=== PATIENT | male | born 1955 | race Caucasian/White ===

== ENCOUNTER 2018-09-22 08:12 | Day surgery (SDC) | payer OTHER ==
[2018-09-21 16:35] VITALS: Ht 165.1 cm; Wt 70.0 kg
[~2018-09-22] VITALS: Ht 165.1 cm; Wt 70.0 kg
[2018-09-22] VITALS (14 sets, daily range): BP systolic 116–151; BP diastolic 58–78; PULSE 44–62; RESP 10–21
[~2018-09-22 08:12] MED LIST: EPHEDrine SULFATE 50 MG/5 ML SYG ONE; PROPOFOL 200 MG INJ ONE
[2018-09-22] MEDS ORDERED: ATOR10TA65 PO (08:49)
[2018-09-22] MEDS ORDERED: POLYMYXIN/BACITRACIN 1L IRRIG ONE (09:22)
[2018-09-22] MEDS ORDERED: BUPIVACAINE 0.25% (MPF) 30 ML INJ ONE (09:22)
[2018-09-22] MEDS ORDERED: CEFAZOLIN 2 GM/50 ML (PMX) 50 ML IVPB ONE (10:00)
[2018-09-22] MEDS ORDERED: SOD CHLORIDE 0.9% 1,000 ML IV SCH (10:00)
--- NOTE | 2018-09-22 10:22 | PREAC ---
Date/Time of Note Date/Time of Note DATE: 09/22/18 TIME: 10:21 Anesthesia Eval and Record Evaluation Time Pre-Procedure Interview DATE: 09/22/18 TIME: 10:21 Age 63 Sex male NPO: 8 hrs Preoperative diagnosis Right Inguinal Hernia Planned procedure Right Inguinal Hernia Repair with Mesh Past Medical History Past Medical History: Includes Cardio: Dyslipidemia Surgery & Anesthesia Issues No known issue Meds Anticoagulation: No Beta Jojo within 24 hr: No Reason Beta Jojo not given: Pt. not on B-Jojo Reported Medications Atorvastatin Calcium (Atorvastatin Calcium) 10 Mg Tablet, 10 MG PO QHS, #30 TAB 09/22/18 Current Medications Cefazolin Sodium/ Dextrose 50 ml @ 100 mls/hr PRE-OP ONCE IVPB ; Start 09/22/18 at 10:00; Stop 09/22/18 at 10:29 Sodium Chloride 1,000 ml @ 75 mls/hr [id number] IV ; Start 09/22/18 at 10:00; Stop 09/22/18 at 23:19 Meds reviewed: Yes Allergies Coded Allergies: No Known Drug Allergies (Unverified Allergy, Unknown, 09/22/18) Allergies Reviewed: Yes Labs/Studies Labs Reviewed: Reviewed by anesthesiologist test: N/A Studies: ECG (n/a), CXR (n/a) Pre-procedure Exam Last vitals Vital Signs Date Temp Pulse Resp B/P (MAP) Pulse Ox O2 O2 Flow FiO2 Time Delivery Rate 09/22/18 99.0 62 16 151/66 97 Room Air 09:28 (94) Airway: Adequate mouth opening, Adequate thyromental dist Mallampati: Mallampati II Teeth: Normal Lung: Normal Heart: Normal ASA Physical Status ASA physical status: 2 Emergency: None Planned Anesthetic General/MAC: ETT, LMA Nerve block: TAP (right) Planned Pain Management Single shot nerve block, Parenteral pain med Pre-operative Attestations Prior to commencing anesthesia and surgery, the patient was re-evaluated, there was verification of: *The patient's identity *The results of appropriate recent lab work and preoperative vital signs *The above evaluation not changing prior to induction *Anesthetic plan, risk benefits, alternative and complications discussed with patient/family; questions answered; patient/family understands, accepts and wishes to proceed. STAN MELISSA MD Sep 22, 2018 10:22
[2018-09-22] MEDS ORDERED: ROPIVACAINE 0.5 % 30 ML VIAL ONE (10:25)
[2018-09-22] MEDS ORDERED: FENTAnyl 50 MCG/ML VIAL ONE (10:25)
[2018-09-22] MEDS ORDERED: CEFAZOLIN 1 GM INJ ONE (10:25)
[2018-09-22] MEDS ORDERED: MIDAZOLAM 1 MG/ML 2 ML INJ ONE (10:25)
[2018-09-22] MEDS ORDERED: ROCURONIUM 50 MG INJ ONE (10:25)
[2018-09-22] MEDS ORDERED: PROPOFOL 20 ML ONE (10:25)
[2018-09-22] MEDS ORDERED: ONDANSETRON 4 MG INJ ONE (11:00)
[2018-09-22] MEDS ORDERED: SUGAMMADEX SODIUM 200 MG/2 ML VIAL IV ONE (11:00)
[2018-09-22] MEDS ORDERED: METOCLOPRAMIDE 10 MG INJ ONE (11:00)
[2018-09-22] MEDS ORDERED: DEXAMETHASONE 4 MG/ML 5 ML INJ ONE (11:00)
[2018-09-22] MEDS ORDERED: KETOROLAC 30 MG INJ ONE (11:00)
--- NOTE | 2018-09-22 11:10 | OPR ---
Date/Time of Note Date/Time of Note DATE: 09/22/18 TIME: 11:07 Operative Report Procedure Date: Sep 22, 2018 Preoperative Diagnosis recurrent incarcerated right inguinal hernia Postoperative Diagnosis same Operation/Procedure Performed open recurrent incarcerated right inguinal hernia repair with small ultrapro plug mesh Surgeon see signature line Wall Steamer none Anesthesia Type: general Estimated Blood Loss: 0 - 10 ml's Transfusion none Specimen none Grafts/Implants none Complications none Pt Condition Post Procedure: stable Indications This is a 63-year-old male with a recurrent incarcerated right inguinal hernia. He has had prior surgery performed with placement of mesh. Risks alternatives benefits and percent were discussed the patient. Potential complications including but not limited to bleeding infection recurrence of hernia need for additional operations compromise to the blood supply of the testicle and compromise to the spermatic cord structures were discussed due to his prior surgery. Patient expressed understanding and consents to the operation. Procedure Description Patient is taken to the OR and prepped and draped in usual sterile fashion. Surgical time was performed. IV antibiotics given. Right inguinal oblique incision was made over the prior incision. Dissection with cautery was carried onto the extremity fascia. Externally fascia was opened. Immediately at the medial anterior medial aspect there is a incarcerated recurrent hernia. Lysis of adhesions performed to allow reduction of this hernia. The cord structures were isolated and retracted out of harm's way with a Nino drain. The anteromedial defect is identified the fascial edges were freshened and the plug portion of the small ultra pro plug mesh is then secured in place the radial plane from the pubic tubercle along the shelving is unlimited. Superiorly the mesh is secured to the internal oblique with interrupted 3-0 Vicryl. Externally fascia is closed over the mesh to protect the mesh. Subcutaneous tissues closed with interrupted 0 Vicryl. Skin is closed with inzorb observable skin stapler. Therapeutic subcutaneous local anesthesia was injected at the incision site. Dry dressings were applied. Placido SOLER Sep 22, 2018 11:10
--- NOTE | 2018-09-22 11:15 | PAC ---
Date/Time of Note Date/Time of Note DATE: 09/22/18 TIME: 11:14 Post-Anesthesia Notes Post-Anesthesia Note Last documented vital signs Vital Signs Date Temp Pulse Resp B/P (MAP) Pulse Ox O2 O2 Flow FiO2 Time Delivery Rate 09/22/18 99.0 62 16 151/66 97 Room Air 11:28 (94) Activity: WNL Respiratory function: WNL Cardiovascular function: WNL Mental status: Baseline Pain reasonably controlled: Yes Hydration appropriate: Yes Nausea/Vomiting absent: Yes STAN MELISSA MD Sep 22, 2018 11:15
[2018-09-22] MEDS ORDERED: MEPERIDINE 25 MG INJ IV PRN (11:30)
[2018-09-22] MEDS ORDERED: DIPHENHYDRAMINE 50 MG INJ IV PRN (11:30)
[2018-09-22] MEDS ORDERED: METOCLOPRAMIDE 10 MG INJ IV PRN (11:30)
[2018-09-22] MEDS ORDERED: EPHEDrine SULFATE 50 MG/5 ML SYG IV PRN (11:30)
[2018-09-22] MEDS ORDERED: FENTAnyl 50 MCG/ML VIAL IV PRN (11:30)
[2018-09-22] MEDS ORDERED: OXYCODONE/ACETAMINOPHEN (5/325) TAB PO PRN (11:30)
[2018-09-22] MEDS ORDERED: LABETALOL HCL 20MG INJ IV PRN (11:30)
[2018-09-22] MEDS ORDERED: HYDROmorphONE 1 MG/5 ML IV SYRINGE IV PRN ×2 (11:30)
[2018-09-22] MEDS ORDERED: HYDROCODONE/APAP (5/325) TAB PO ONE (11:30)
[2018-09-22] MEDS ORDERED: hydrALAzine 20 MG INJ IV PRN (11:30)
[2018-09-22] MEDS ORDERED: ONDANSETRON 4 MG INJ IV PRN (11:30)
[2018-09-22] MEDS: FENTAnyl 50 MCG/ML VIAL IV PRN ×2 (11:45→11:56)
== END 2018-09-22 13:27 | disposition home or self-care (01) ==
LOC: SDS 08:12
PROVIDERS: ATTEND Surgery
DX: K40.31 Unilateral inguinal hernia, with obstruction, without gangrene, recurrent (principal)
CPT/HCPCS: 49521; C1781; J0690; J1100; J1885; J2250; J2405; J2765; J2795; J3010; Z7512; Z7610